=== PATIENT | male | born 1955 | race Caucasian/White ===

== ENCOUNTER 2021-01-24 11:07 | Emergency (ER) | payer MEDICAID ==
--- NOTE | 2021-01-24 11:38 | CT ---
Head CT Technique: Multiple axial sections through the brain were obtained. Intravenous contrast was not utilized. Reconstructed coronal and sagittal images were obtained. Comparison: No prior head CT study is available. Findings: Large area of slight increased density is noted within the right temporal lobe extending into the right basal ganglia. This abnormality measures 5.9 x 5.2 cm. Adjacent low density is noted medially within the basal ganglia compatible with old infarct. Low density is seen within the periventricular and subcortical white matter most likely due to small vessel ischemic demyelination change. Right-sided abnormality causes effacement of the right lateral ventricles as well as midline shift of 4.8 mm of the anterior temporal horns. Bone window settings were reviewed. No acute calvarial finding is seen. Visualized paranasal sinuses and mastoid sinuses show nothing acute. No acute calvarial finding is seen. Impression: 1. Large area of increased density within the temporal lobe extending into the basal ganglia measuring 5.9 x 5.2 cm seen. Findings could represent an acute hemorrhage. Other etiology could be an increased density mass. This causes midline shift and mild effacement of the right lateral thecal sac. Brain MRI is recommended to further evaluate which should include contrast administration. 2. Other senescent change as described above. Diagnostic code #5
[2021-01-24 12:15] LABS: CORONAVIRUS COVID-19 NAA NEGATIVE (NEGATIVE)
--- NOTE | 2021-01-24 12:41 | EDM.PDOC ---
ED HPI GENERAL MEDICAL PROBLEM - General Chief Complaint: Neuro Symptoms/Deficits Stated Complaint: [facility] Time Seen by Provider: 01/24/21 11:07 - History of Present Illness INITIAL COMMENTS - FREE TEXT/NARRATIVE: 66-year-old male brought in by EMS with strokelike symptoms. Last known normal is unclear but was before , or over 3 days ago. This is according to the patient's daughter. Patient complains mostly of some speech difficulty but he is is not entirely sure when the onset was he is not aware of any weakness with this. The patient has mild right-sided facial weakness but he is unaware of this. Patient denies any palpitations chest pain or other difficulties at this time he does not have a cough that is out of the ordinary he is a habitual smoker and continues to smoke. Patient does not routinely seek health care and states his overall health is pretty good. After initial evaluation I did discuss the patient's case with the daughter who did come in and try and convince the patient to go along with her recommendations and seek immediate neurosurgical consultation. The patient's daughter was the one that was able to to date the onset of symptoms being back to . However the patient's daughter was unable to convince the patient to seek further medical care. A good friend of the patient, Franco, did come in and fully understands the patient's condition and was very helpful in trying to convince the patient to seek further medical care however he and I were unsuccessful in getting the patient to do this. Franco gives a history of the patient injuring his head this summer at some point and since then he has had intermittent blackout spells and intermittent spells of confusion. - Related Data Allergies Allergy/AdvReac Type Severity Reaction Status Date / Time No Known Allergies Allergy Verified 01/24/21 11:22 Home Meds: Home Meds . [No Known Home Meds] 01/24/21 [History] Past Medical History - Past Health History Medical/Surgical History: Denies Medical/Surgical History Social & Family History - Tobacco Use Tobacco Use Status *Q: Current Every Day Tobacco User Years of Tobacco use: 50 Packs/Tins Daily: 1 - Caffeine Use Caffeine Use: Reports: Coffee - Recreational Drug Use Recreational Drug Use: No ED ROS GENERAL - Review of Systems Review Of Systems: See Below Constitutional: Reports: No Symptoms HEENT: Reports: Other (Speech difficulty) Respiratory: Reports: No Symptoms Cardiovascular: Reports: No Symptoms Endocrine: Reports: No Symptoms GI/Abdominal: Reports: No Symptoms : Reports: No Symptoms Musculoskeletal: Reports: No Symptoms Neurological: Denies: Confusion, Dizziness, Headache Psychiatric: Reports: Other (Patient adamantly denies any suicidal or homicidal wishes or intent he is alert and oriented and is able to voice current events that have been happening). Denies: Agitation, Anxiety, Confusion Hematologic/Lymphatic: Reports: No Symptoms ED EXAM, NEURO - Physical Exam Exam: See Below Exam Limited By: No Limitations General Appearance: Alert, No Apparent Distress, Other (He has some mild speech issue and right-sided facial weakness) Eye Exam: Bilateral Eye: EOMI, Normal Inspection, PERRL Ears: Normal External Exam, Normal Canal, Hearing Grossly Normal, Normal TMs Nose: Normal Inspection, Normal Mucosa, No Blood Throat/Mouth: Normal Inspection, Normal Lips (Other than smoke staining), Normal Oropharynx, Normal Voice, No Airway Compromise. No: Normal Teeth (Dentures in place) Head Exam: Atraumatic, Normocephalic Neck: Normal Inspection, Supple, Non-Tender, Full Range of Motion. No: Lymphadenopathy (L), Lymphadenopathy (R) Respiratory/Chest: No Respiratory Distress, Lungs Clear, Normal Breath Sounds Cardiovascular: Regular Rate, Rhythm, No Edema, No Murmur GI/Abdominal: Normal Bowel Sounds, Soft, Non-Tender Neurological: Other (He has right facial weakness he also has a very subtle right sided leg and upper extremity weakness but this is subtle. He is right- hand dominant.) Back Exam: Normal Inspection. No: CVA Tenderness (L), CVA Tenderness (R) Extremities: Normal Inspection, No Pedal Edema Psychiatric: Normal Affect, Normal Mood, Other (He is alert and oriented able to voice recent events). No: Anxious, Depressed Mood, Flat Affect Skin Exam: Warm, Dry, Intact #1 Interpretation EKG Date: 01/24/21 Rhythm: NSR Rate (Beats/Min): 71 [place]: LAD-Left [place] Deviation P-Wave: Present QRS: Other (Suspicious for left anterior fascicular block) ST-T: Normal QT: Normal Comparison: NA - No Prior EKG EKG Interpretation Comments: Abnormal EKG Course - Vital Signs Last Recorded V/S: Last Vital Signs Temp 36.1 C 01/24/21 11:20 Pulse 80 01/24/21 11:20 Resp 18 01/24/21 11:20 BP 141/89 H 01/24/21 11:20 Pulse Ox 95 01/24/21 11:20 - Orders/Labs/Meds Labs: Laboratory Tests 01/24/21 01/24/21 01/24/21 Range/Units 11:31 12:45 12:45 WBC 8.13 (4.23-9.07) K/mm3 RBC 5.40 (4.63-6.08) M/mm3 Hgb 16.1 (13.7-17.5) gm/dl Hct 48.9 (40.1-51.0) % MCV 90.6 (79.0-92.2) fl MCH 29.8 (25.7-32.2) pg MCHC 32.9 (32.2-35.5) g/dl RDW Std Deviation 45.7 H (35.1-43.9) fL Plt Count 302 (163-337) K/mm3 MPV 9.9 (9.4-12.3) fl Neut % (Auto) 71.2 H (34.0-67.9) % Lymph % (Auto) 20.0 L (21.8-53.1) % [place] % (Auto) 7.4 (5.3-12.2) % Eos % (Auto) 0.6 L (0.8-7.0) Baso % (Auto) 0.6 (0.1-1.2) % Neut # (Auto) 5.78 H (1.78-5.38) K/mm3 Lymph # (Auto) 1.63 (1.32-3.57) K/mm3 [place] # (Auto) 0.60 (0.30-0.82) K/mm3 Eos # (Auto) 0.05 (0.04-0.54) K/mm3 Baso # (Auto) 0.05 (0.01-0.08) K/mm3 PT 10.9 (9.7-12.0) SECONDS INR 0.98 APTT 28.1 (21.7-31.4) SECONDS Sodium (136-145) mEq/L Potassium (3.5-5.1) mEq/L Chloride (98-107) mEq/L Carbon Dioxide (21-32) mEq/L Anion Gap (5-15) BUN (7-18) mg/dL Creatinine (0.7-1.3) mg/dL Est Cr Clr Drug Dosing mL/min Estimated GFR (MDRD) (>60) mL/min BUN/Creatinine Ratio (14-18) Glucose (70-99) mg/dL Calcium (8.5-10.1) mg/dL Total Bilirubin (0.2-1.0) mg/dL AST (15-37) U/L ALT (16-63) U/L Alkaline Phosphatase (46-116) U/L Troponin I (0.00-0.056) ng/mL Total Protein (6.4-8.2) g/dl Albumin (3.4-5.0) g/dl Globulin gm/dL Albumin/Globulin Ratio (1-2) Influenza Type A RNA Negative (NEGATIVE) Influenza Type B RNA Negative (NEGATIVE) SARS-CoV-2 RNA (NILE) Negative (NEGATIVE) 01/24/21 Range/Units 12:45 WBC (4.23-9.07) K/mm3 RBC (4.63-6.08) M/mm3 Hgb (13.7-17.5) gm/dl Hct (40.1-51.0) % MCV (79.0-92.2) fl MCH (25.7-32.2) pg MCHC (32.2-35.5) g/dl RDW Std Deviation (35.1-43.9) fL Plt Count (163-337) K/mm3 MPV (9.4-12.3) fl Neut % (Auto) (34.0-67.9) % Lymph % (Auto) (21.8-53.1) % [place] % (Auto) (5.3-12.2) % Eos % (Auto) (0.8-7.0) Baso % (Auto) (0.1-1.2) % Neut # (Auto) (1.78-5.38) K/mm3 Lymph # (Auto) (1.32-3.57) K/mm3 [place] # (Auto) (0.30-0.82) K/mm3 Eos # (Auto) (0.04-0.54) K/mm3 Baso # (Auto) (0.01-0.08) K/mm3 PT (9.7-12.0) SECONDS INR APTT (21.7-31.4) SECONDS Sodium 143 (136-145) mEq/L Potassium 4.5 (3.5-5.1) mEq/L Chloride 106 (98-107) mEq/L Carbon Dioxide 28 (21-32) mEq/L Anion Gap 13.5 (5-15) BUN 9 (7-18) mg/dL Creatinine 0.9 (0.7-1.3) mg/dL Est Cr Clr Drug Dosing 89.37 mL/min Estimated GFR (MDRD) > 60 (>60) mL/min BUN/Creatinine Ratio 10.0 L (14-18) Glucose 92 (70-99) mg/dL Calcium 8.9 (8.5-10.1) mg/dL Total Bilirubin 0.5 (0.2-1.0) mg/dL AST 21 (15-37) U/L ALT 18 (16-63) U/L Alkaline Phosphatase 71 (46-116) U/L Troponin I < 0.017 (0.00-0.056) ng/mL Total Protein 6.4 (6.4-8.2) g/dl Albumin 3.7 (3.4-5.0) g/dl Globulin 2.7 gm/dL Albumin/Globulin Ratio 1.4 (1-2) Influenza Type A RNA (NEGATIVE) Influenza Type B RNA (NEGATIVE) SARS-CoV-2 RNA (NILE) (NEGATIVE) - Re-Assessments/Exams Free Text/Narrative Re-Assessment/Exam: 01/24/21 12:39 I have informed the patient what were seen on the CT and cannot exclude an acute bleed versus mass or tumor versus both. He is absolutely insistent not being transferred. The patient's daughter is here and states that the patient is acting his normal self. The patient is alert and oriented to self date location current events. He denies any suicidal wishes. He just does not want to go anywhere. I have talked to him 3 times about this and he has not budged I have told him the mass in his head is big enough that I am surprised he has not had seizures yet. I have informed the patient that I cannot send him to a larger Medical Center without his permission and he is refusing this best option. He agrees not to drive. The patient is considering signing the AMA form but thus far is refusing to. At this point we are still waiting on labs. 01/24/21 13:34 Again discussed situation with patient and he is adamant that he wants to go home friend of the patient is here, Franco, who has tried to convince the patient to stay again the patient has no suicidal wishes he does not wish to hurt anybody he is alert and oriented and gives me no reason to think he is not capable of making his own decisions. Unfortunately he refuses to sign the AMA form however his friend Franco did witness the form and the discussion we had. I explained to the patient no uncertain terms that he will probably from this. He must not drive and he verbally voices understanding of this. He is at too high risk of having seizures. With further discussion with Franco it sounds as though the patient has been having blackout spells for a couple of months. He did hit his head pretty hard back in the summer. Departure - Departure Time of Disposition: 13:36 Disposition: Against Medical Advice 07 Clinical Impression: Intracranial mass - Discharge Information Referrals: PCP,None [Primary Care Provider] - Forms: ED Department Discharge Additional Instructions: Please return to the emergency room so we can send you to an appropriate health care facility they can care of the best for you. Follow-up in the hospital clinic early this next week for recheck their phone number is [phone]. As we discussed multiple times you must not drive. You have a history of blacking out and you are at high risk for having seizures. Sepsis Event Note (ED) - Focused Exam Vital Signs: Vital Signs Temp Pulse Resp BP Pulse Ox 01/24/21 11:20 36.1 C 80 18 141/89 H 95
== END 2021-01-24 13:50 | disposition left against medical advice (07) ==
LOC: JD.ED 11:07
DX: G93.89 Other specified disorders of brain (principal); R94.31 Abnormal electrocardiogram [ECG] [EKG]; Z72.0 Tobacco use; Z20.822 Contact with and (suspected) exposure to COVID-19
CPT/HCPCS: 0240U; 36415; 70450; 80053; 84484; 85025; 85610; 85730; 93005; 99285

== ENCOUNTER 2021-03-01 11:23 | Emergency (ER) | payer MEDICAID ==
[2021-03-01] MEDS ORDERED: Sodium Chloride 0.9% 10 ML Syringe FLUSH PRN (11:27)
--- NOTE | 2021-03-01 11:52 | CT ---
Head CT Technique: Multiple axial sections through the brain were obtained. Intravenous contrast was not utilized. Reconstructed coronal and sagittal images were obtained. Findings: Previous head CT study of 01/24/21. Findings: Low density is noted within the right temporal and parietal regions. There is an area of increased density being seen within the right temporal lobe which has increased in size from previous exam. This currently measures 6.7 cm by 4.9 cm. On previous exam this measured about 6.1 cm x 4.5 cm in similar measurement planes. Slight low density is seen medial to this mass within the right basal ganglia which is stable. Low density is also noted within the subcortical white matter within the left parietal region which is stable. There is mass-effect upon the right lateral ventricle. Midline shift is seen by about 6.9 mm. This measured about 5.0 mm on prior study. Bone window settings were reviewed which shows no acute calvarial abnormality. Cerumen is seen within both external auditory canals. Mastoid sinuses are clear. Visualized paranasal sinuses are clear. Impression: 1. Increased density mass within the right temporal region which has slightly increased in size from prior exam as noted above. Increased midline shift is seen to the left side as described above. 2. Low density is seen around the periphery of this abnormality which remains fairly stable. 3. Low density is noted within the left parietal region which remained stable. 4. No acute hemorrhage is seen. Note: Results of the study were discussed with Dr. Leyva by phone at around 11:48 AM Diagnostic code #9
--- NOTE | 2021-03-01 12:30 | EDM.PDOC ---
ED HPI GENERAL MEDICAL PROBLEM - General Chief Complaint: Neuro Symptoms/Deficits Stated Complaint: [facility] Time Seen by Provider: 03/01/21 11:27 Source of Information: Reports: Patient, EMS, Other (friend) - History of Present Illness INITIAL COMMENTS - FREE TEXT/NARRATIVE: The patient presents by [facility] for an unresponsive episode. The patient was at the [place] eating with friends and he had an unresponsive episode where his head went down and nearly went into his food. He then had some shaking in his hands. He was confused after that. It took awhile for him to remember some things. He has no numbness or weakness, headache, fever, chills, cough, chest pain, shortness of breath, abdominal pain, nausea, vomiting or diarrhea. He has no medical problems. He was seen here in January for similar episode and found to have a mass in the right side of his brain. He at that time did not want to be transferred or admitted. He just wanted to go home. He did not follow up with anyone and he does not want anything done. Onset: Sudden Duration: Minutes: Improves with: Reports: None Worsens with: Reports: None Associated Symptoms: Reports: No Other Symptoms - Related Data Allergies Allergy/AdvReac Type Severity Reaction Status Date / Time Penicillins Allergy Cannot Verified 03/01/21 11:38 Remember Home Meds: Home Meds . [No Known Home Meds] 01/24/21 [History] Past Medical History - Past Health History Medical/Surgical History: Denies Medical/Surgical History Neurological History: Reports: CVA, Other (See Below) Other Neuro History: per EMS report Social & Family History - Tobacco Use Tobacco Use Status *Q: Current Some Day Tobacco User Years of Tobacco use: 1 Packs/Tins Daily: 50 - Caffeine Use Caffeine Use: Reports: Coffee - Recreational Drug Use Recreational Drug Use: No ED ROS GENERAL - Review of Systems Review Of Systems: See Below Constitutional: Reports: No Symptoms HEENT: Reports: No Symptoms Respiratory: Reports: No Symptoms Cardiovascular: Reports: No Symptoms Endocrine: Reports: No Symptoms GI/Abdominal: Reports: No Symptoms : Reports: No Symptoms Musculoskeletal: Reports: No Symptoms Skin: Reports: No Symptoms Neurological: Reports: Other (unresponsive episode) ED EXAM, NEURO - Physical Exam Exam: See Below Exam Limited By: No Limitations General Appearance: Alert, No Apparent Distress Ears: Normal External Exam Nose: Normal Inspection Head Exam: Atraumatic, Normocephalic Neck: Normal Inspection Respiratory/Chest: No Respiratory Distress, Lungs Clear, Normal Breath Sounds Cardiovascular: Regular Rate, Rhythm, No Edema, No Murmur GI/Abdominal: Soft, Non-Tender, No Organomegaly Neurological: Alert, No Motor/Sensory Deficits, Oriented x 3 #1 Interpretation EKG Date: 03/01/21 Time: 11:30 Rhythm: NSR Rate (Beats/Min): 74 [place]: Normal P-Wave: Present QRS: Normal ST-T: Normal QT: Normal Course - Vital Signs Last Recorded V/S: Last Vital Signs Temp 97.4 F 03/01/21 11:36 Pulse 75 03/01/21 11:36 Resp 20 03/01/21 11:36 BP 107/80 03/01/21 11:36 Pulse Ox 96 03/01/21 11:36 - Orders/Labs/Meds Orders: Active Orders 24 hr Category Date Time Status Cardiac Monitoring [RC] . DIRECTED Care 03/01/21 11:27 Active Peripheral IV Care [RC] . DIRECTED Care 03/01/21 11:28 Active Sodium Chloride 0.9% [Saline Flush] Med 03/01/21 11:27 Active 10 ml FLUSH ASDIRECTED PRN Peripheral IV Insertion Adult [OM.PC] Stat Oth 03/01/21 11:27 Ordered Medication Orders Sodium Chloride (Sodium Chloride 0.9% 10 Ml Syringe) 10 ml FLUSH ASDIRECTED PRN PRN Reason: Keep Vein Open Last Admin: 03/01/21 11:45 Dose: 10 ml Documented by: JUDE Labs: Laboratory Tests 03/01/21 03/01/21 03/01/21 Range/Units 11:35 11:35 11:35 WBC 6.78 (4.23-9.07) K/mm3 RBC 5.22 (4.63-6.08) M/mm3 Hgb 15.6 (13.7-17.5) gm/dl Hct 46.9 (40.1-51.0) % MCV 89.8 (79.0-92.2) fl MCH 29.9 (25.7-32.2) pg MCHC 33.3 (32.2-35.5) g/dl RDW Std Deviation 45.0 H (35.1-43.9) fL Plt Count 287 (163-337) K/mm3 MPV 9.4 (9.4-12.3) fl Neut % (Auto) 66.1 (34.0-67.9) % Lymph % (Auto) 26.5 (21.8-53.1) % Webb % (Auto) 6.2 (5.3-12.2) % Eos % (Auto) 0.7 L (0.8-7.0) Baso % (Auto) 0.4 (0.1-1.2) % Neut # (Auto) 4.47 (1.78-5.38) K/mm3 Lymph # (Auto) 1.80 (1.32-3.57) K/mm3 Webb # (Auto) 0.42 (0.30-0.82) K/mm3 Eos # (Auto) 0.05 (0.04-0.54) K/mm3 Baso # (Auto) 0.03 (0.01-0.08) K/mm3 PT 10.9 (9.7-12.0) SECONDS INR 0.98 APTT 27.2 (21.7-31.4) SECONDS Sodium 138 (136-145) mEq/L Potassium 3.8 (3.5-5.1) mEq/L Chloride 103 (98-107) mEq/L Carbon Dioxide 24 (21-32) mEq/L Anion Gap 14.8 (5-15) BUN 13 (7-18) mg/dL Creatinine 1.0 (0.7-1.3) mg/dL Est Cr Clr Drug Dosing 81.39 mL/min Estimated GFR (MDRD) > 60 (>60) mL/min BUN/Creatinine Ratio 13.0 L (14-18) Glucose 139 H (70-99) mg/dL Calcium 8.4 L (8.5-10.1) mg/dL Total Bilirubin 0.4 (0.2-1.0) mg/dL AST 11 L (15-37) U/L ALT 17 (16-63) U/L Alkaline Phosphatase 65 (46-116) U/L Troponin I < 0.017 (0.00-0.056) ng/mL Total Protein 6.6 (6.4-8.2) g/dl Albumin 3.5 (3.4-5.0) g/dl Globulin 3.1 gm/dL Albumin/Globulin Ratio 1.1 (1-2) Meds: Medications Generic Name Dose Route Start Last Admin Trade Name Deion PRN Reason Stop Dose Admin Sodium Chloride 10 ml 03/01/21 11:27 03/01/21 11:45 Sodium Chloride 0.9% 10 Ml Syringe FLUSH 10 ml ASDIRECTED PRN Administration Keep Vein Open - Re-Assessments/Exams Free Text/Narrative Re-Assessment/Exam: 03/01/21 12:33 A stroke alert was called. I went into the room right away and sent him to the CT scanner. He was well just prior to EMS call. His CT shows increased density mass within the right temporal region which has slightly increased in size from prior exam. Increased midline shift is seen to the left side. Low density is seen around the periphery of this abnormality which remains fairly stable. Low density is noted within the left parietal region which remained stable. No acute hemorrhage is seen. His labs all look good. The patient is back to baseline low. I explained that the mass is still there and it has gotten larger. I feel I need to talk with a neurosurgeon in [place]. The patient refused to let me talk to anyone. He does not want to be transferred and he does not want to see anyone for this. I explained that this is getting bigger and will end up killing him. He is aware with that and is okay. He would like to go home. I will discharge him home. Departure - Departure Time of Disposition: 12:40 Disposition: Home, Self-Care 01 Condition: Good Clinical Impression: Intracranial mass, Unresponsive episode - Discharge Information *PRESCRIPTION DRUG MONITORING PROGRAM REVIEWED*: Not Applicable *COPY OF PRESCRIPTION DRUG MONITORING REPORT IN PATIENT ALFA: Not Applicable Referrals: Elvis Isabel MD [Physician] - 1 Week Johnny Baldwin MD [Consulting Physician] - 1 Week Additional Instructions: You have a mass in your head. It appears the mass if getting bigger. If it gets any bigger it can cause more problems like seizures, numbness, weakness, vision changes, headaches, coma and . I feel you need to see a neurosurgeon. If you decide to follow up with one call Dr Baldwin's office or any other neurosurgeon. Please return if you are worse. Sepsis Event Note (ED) - Focused Exam Vital Signs: Vital Signs Temp Pulse Resp BP Pulse Ox 03/01/21 11:36 97.4 F 75 20 107/80 96 - My Orders Last 24 Hours: My Active Orders 03/01/21 11:27 Cardiac Monitoring [RC] . DIRECTED Sodium Chloride 0.9% [Saline Flush] 10 ml FLUSH ASDIRECTED PRN Peripheral IV Insertion Adult [OM.PC] Stat 03/01/21 11:28 Peripheral IV Care [RC] . DIRECTED - Assessment/Plan Last 24 Hours: My Active Orders 03/01/21 11:27 Cardiac Monitoring [RC] . DIRECTED Sodium Chloride 0.9% [Saline Flush] 10 ml FLUSH ASDIRECTED PRN Peripheral IV Insertion Adult [OM.PC] Stat 03/01/21 11:28 Peripheral IV Care [RC] . DIRECTED
== END 2021-03-01 13:00 | disposition home or self-care (01) ==
LOC: JD.ED 11:23
DX: G93.89 Other specified disorders of brain (principal); Z88.0 Allergy status to penicillin; Z86.73 Personal history of transient ischemic attack (TIA), and cerebral infarction without residual deficits; Z72.0 Tobacco use
CPT/HCPCS: 36415; 70450; 70450-26; 80053; 84484; 85025; 85610; 85730; 93005; 99284-25; U0002

== ENCOUNTER 2021-04-07 21:34 | Emergency (ER) | payer MEDICAID ==
[2021-04-07] MEDS ORDERED: Diphtheria,Pertussis(Acell),Tetanus Vaccine 0.5 ML Syringe IM ONE (21:56)
[2021-04-07] MEDS ORDERED: fentaNYL 100 MCG/2 ML SDV IVPUSH ONE (23:25)
[2021-04-07] MEDS ORDERED: Lidocaine 1% PF 2 ML SDV INJECT ONE (23:26)
[2021-04-08] MEDS ORDERED: Acetaminophen/HYDROcodone 325-5 MG Tab PO ONE (03:41)
== END 2021-04-08 06:30 | disposition home or self-care (01) ==
LOC: JD.ED 21:34
DX: S42.202A Unspecified fracture of upper end of left humerus, initial encounter for closed fracture (principal); Z88.0 Allergy status to penicillin; Z72.0 Tobacco use; Z86.73 Personal history of transient ischemic attack (TIA), and cerebral infarction without residual deficits; Z23 Encounter for immunization; W22.09XA Striking against other stationary object, initial encounter
CPT/HCPCS: 70450; 71045; 73030; 90471; 90715; 96374; 99284; A9270; J3010

== ENCOUNTER 2021-04-09 15:28 | Emergency (ER) | payer MEDICAID ==
[2021-04-09] MEDS ORDERED: Dextrose 5%-Lactated Ringers 1,000 ML IV SCH (18:00)
== END 2021-04-09 18:41 ==
LOC: JD.ED 15:28
DX: I63.9 Cerebral infarction, unspecified (principal); S42.202A Unspecified fracture of upper end of left humerus, initial encounter for closed fracture; Z88.0 Allergy status to penicillin; Z86.73 Personal history of transient ischemic attack (TIA), and cerebral infarction without residual deficits; Z20.822 Contact with and (suspected) exposure to COVID-19; W18.30XA Fall on same level, unspecified, initial encounter
CPT/HCPCS: 36415; 70450; 71045; 80053; 82550; 83735; 85025; 85610; 85730; 87635; 93005; 99285; J7121; 93010; U0002